=== PATIENT | female | born 1970 | race Caucasian/White ===

== ENCOUNTER 2020-02-13 12:19 | Emergency (ER) | payer MEDICAID, OTHER ==
[~2020-02-13] VITALS: Ht 165.1 cm; Wt 112.5 kg
[2020-02-13 12:24] VITALS: BP 152/88
--- NOTE | 2020-02-13 12:29 | NUR ---
Patient ambulated to bed 6. RN evaluating patient at bedside.
--- NOTE | 2020-02-13 12:36 | NUR ---
49/F presents to ED with complaints of right sided abdominal pain going on since Sunday. Patient states she was admitted to hospital in [place] where she was diagnosed with gallstones. Patient states she was supposed to have surgery and then did not get surgery d/t not seeing a soil biology teacher during her stay there. Patient states she was discharged yesterday and states she has been having headache x2 days and they were not able to manage her pain for her headache. Pt also c/o nausea, denies vomiting. Patient c/o 10/10 pain.
--- NOTE | 2020-02-13 12:41 | NUR ---
Dr. Escobedo is evaluating the patient at bedside.
[2020-02-13] MEDS ORDERED: PROCHLORPERAZINE 10 MG/2 ML VIAL IVP ONE (12:50)
[2020-02-13] MEDS ORDERED: ONDANSETRON 4 MG/2 ML VIAL IVP ONE (12:50)
[2020-02-13] MEDS: MORPHINE SULFATE 4 MG/ML SYR IVP ONE ×2 (13:02→13:15)
--- NOTE | 2020-02-13 13:05 | NUR ---
pt refused morphine because it makes her dizzy and nauseous. ermd aware and will change order
[2020-02-13] MEDS ORDERED: KETOROLAC 30 MG/ML VIAL IVP ONE (13:10)
--- NOTE | 2020-02-13 13:11 | NUR ---
Ultrasound at bedside.
[2020-02-13 13:12] LABS: BASOPHILS % (AUTO) 0.3 % (0.0-2.0); EOSINOPHILS # (AUTO) 0.1 K/uL (0-0.4); EOSINOPHILS % (AUTO) 1.2 % (0.0-4.0); HEMOGLOBIN 12.6 g/dL (12.0-16.0); LYMPHOCYTES # (AUTO) 2.1 K/uL (2.5-16.5); LYMPHOCYTES % (AUTO) 30.8 % (20.5-51.1); MEAN CORPUSCULAR HEMOGLOBIN 31 pg (27-31); MEAN CORPUSCULAR HGB CONC 34 g/dL (33-37); MEAN CORPUSCULAR VOLUME 90.1 fL (80-94); MONOCYTES # (AUTO) 0.4 K/uL (0.8-1.0); MONOCYTES % (AUTO) 6.6 % (1.7-9.3); NEUTROPHILS # (AUTO) 4.2 K/uL (1.8-7.7); NEUTROPHILS % (AUTO) 61.1 % (42.2-75.2); PLATELET COUNT (AUTO) 199 K/uL (140-450); RED BLOOD CELL COUNT(AUTO) 4.11 MIL/uL (4.20-5.40); RED CELL DISTRIBUTION WIDTH 12.9 % (11.6-13.7); WHITE BLOOD COUNT (AUTO) 6.8 K/uL (4.8-10.8)
[2020-02-13 13:12] LABS: APPEARANCE,URINE CLEAR (CLEAR); BILIRUBIN,URINE NEGATIVE (NEGATIVE); BLOOD, URINE NEGATIVE (NEGATIVE); COLOR,URINE YELLOW (YELLOW); LEUKOCYTE ESTERASE ,URINE NEGATIVE (NEGATIVE); NITRITE, URINE NEGATIVE (NEGATIVE); PH,URINE 6.5 (5.0-9.0); UGLUCOSE NEGATIVE (NEGATIVE)
[2020-02-13 13:29] LABS: ALBUMIN 3.3 g/dL (3.4-5.0); ANION GAP 11.2 (8-16); CARBON DIOXIDE 28.5 mmol/L (21-32); CREATININE 0.8 mg/dL (0.6-1.3); POTASSIUM 3.7 mmol/L (3.5-5.1); TOTAL BILIRUBIN 0.2 mg/dL (0.0-1.0)
--- NOTE | 2020-02-13 13:33 | NUR ---
X-Ray at bedside.
[2020-02-13 14:29] VITALS: BP 141/84
--- NOTE | 2020-02-13 14:30 | NUR ---
Patient discharged with v/s stable. Written and verbal after care instructions given and explained. Patient alert, oriented and verbalized understanding of instructions. Ambulatory with to car. All questions addressed prior to discharge. ID band removed. Patient advised to follow up with PMD. Rx of tylenol & zofran given. Patient educated on indication of medication including possible reaction and side effects. Opportunity to ask questions provided and answered.
== END 2020-02-13 14:30 | disposition home or self-care (01) ==
LOC: MED 12:19
DX: R10.11 Right upper quadrant pain (principal); R51.9 Headache, unspecified; I10 Essential (primary) hypertension; R07.9 Chest pain, unspecified
CPT/HCPCS: 36415; 71045; 76705; 80053; 81003; 81025; 83690; 84484; 84702; 85025; 93005; 96374; 96375; 99285; J0780; J1885; J2405; Q0092; J2270